=== PATIENT | female | born 1965 | race Caucasian/White ===

== ENCOUNTER 2016-12-09 23:18 | Emergency (ER) | payer OTHER ==
--- NOTE | 2016-12-10 02:50 | ED ORDER SUMMARY ---
..... Patient: GHAZALA LYNN OrderSheet [facility] VisitID: [id number] [place] [address] 51y, F Registration Date/Time: 12/09/2016 ORDER SHEET Weight: 93.8 kg (stated) Allergies: levothyroxine, Erythromycin, Fluoxetine, Lorazepam, Atorvastatin GENERAL ORDERS: Forearm Right Urgent (23:57 12/09/2016 Braydon Stewart) (Ack 0:03 Brianne ER Baker Apprentice) (0:30 GUnger) Cervical Spine 2 or 3V Urgent (23:58 12/09/2016 Braydon Stewart) (Ack 0:03 Brianne ER Baker Apprentice) (0:30 GUnger) CBC w Diff Urgent (00:52 12/10/2016 Braydon Stewart) (Ack 0:57 OSnell) (1:13 JSanders R.N.) CMP Urgent (00:52 12/10/2016 Braydon Stewart) (Ack 0:57 OSnell) (1:13 JSanders R.N.) PT with INR Urgent (00:52 12/10/2016 Braydon Stewart) (Ack 0:57 OSnell) (1:13 JSanders R.N.) PTT Urgent (00:52 12/10/2016 Braydon Stewart) (Ack 0:57 OSnell) (1:14 JSanders R.N.) MEDICATION ORDERS: Hydrocodone-APAP PO 5/325 mg (NOW, HIGH ALERT MEDICATION) (23:58 12/09/2016 Braydon Stewart) (Ack 23:59 JSanders R.N.) (0:01 JSanders R.N.) Morphine IM 5 mg (HIGH ALERT MEDICATION, NOW) (00:53 12/10/2016 Braydon Stewart) (Ack 0:58 JSanders R.N.) (1:06 JSanders R.N.) IV FLUIDS: ORDER SHEET NOTES: [Electronically signed by Mariam Castanon R.N. (03:38 12/10/2016)] [Electronically signed by Alonzo Marrufo Dr. (06:08 12/11/2016)] [Electronically locked/signed by Mariam Castanon R.N. (03:38 12/10/2016)]
--- NOTE | 2016-12-10 02:50 | ED NURSING NOTES ---
Clinical Report - Nurses [facility] [address] [place] [address] 12/09/2016 23:21 Patient: GHAZALA LYNN TRIAGE Triage time 23:30 Dec 09 2016. Acuity: LEVEL 3. Chief Complaint: RIGHT UPPER EXTREMITY PAIN. Location of symptoms- (Bruising in right arm thats painful). 23:51 12/09/16. SEPSIS SCREEN: Sepsis Screen. Negative (no infection suspected/documented). RADHA COMA SCORE: Radha Coma Scale: 15- eyes open spontaneously (4); best verbal response- oriented x 4 (5); best motor response- obeys commands (6). --23:51 Mariam Castanon R.N. 23:30 12/09/16. BP: 102/48 (large adult cuff) taken on the left arm, while sitting. HR: 66. RR: 18. O2 saturation: 95% on room air. Temp: 97.6 F (oral). Pain level now: 810. --23:51 Mariam Castanon R.N. Weight: 93.8 kg stated. Height/Length: 62 inches Per Patient. BMI: 37.9. --23:35 Mariam Castanon R.N. Medications Magnesium Oral (Capsule 500 mg) 1 capsule, at bedtime. --23:46 Mariam Castanon R.N. Multivitamins Oral. --23:46 Mariam Castanon R.N. Isosorbide Mononitrate ER Oral (Tablet Extended Release 24 Hour 30 mg) 1 tablet. --23:47 Mariam Castanon R.N. Torsemide Oral (Tablet 20 mg) 3 tablets, 2x a day. --23:47 Mariam Castanon R.N. Potassium Chloride ER Oral (Capsule Extended Release 10 meq) 1 capsule, BID. --23:48 Mariam Castanon R.N. Vitamin D3 Complete Oral. Vitamin D3 Oral (Capsule 14419 unit) 1 capsule, 1xweek. --23:48 Mariam Castanon R.N. Coreg Oral (Tablet 12.5 mg) 1 tablet, 2x a day. --23:49 Mariam Castanon R.N. Lisinopril Oral (Tablet 2.5 mg) 1 tablet, daily. --23:49 Mariam Castanon R.N. Warfarin Sodium Oral (Tablet 2 mg) 5 tablet, Tuesday and , 4 tabs the rest of the week. --23:50 Mariam Castanon R.N. Aspirin Low Dose Oral (Tablet 81 mg) 1 tablet. --23:50 Mariam Castanon R.N. Nitrofurantoin Oral. --23:51 Mariam Castanon R.N. The following entry was struck and corrected by Mariam Castanon R.N., 23:57 (12/09/16) Reason for correction - other(correction). <<STRICKEN ENTRY-- Warfarin Sodium Oral (Tablet 2 mg) 1 tablet. --23:50 Mariam Castanon R.N. --END STRIKE>>. Allergies levothyroxine.(rash) --23:45 Mariam Castanon R.N. Erythromycin.(itching, rash, SOB) --23:45 Mariam Castanon R.N. Fluoxetine.(rash) --23:45 Mariam Castanon R.N. Lorazepam. --23:46 Mariam Castanon R.N. Atorvastatin. --23:46 Mariam Castanon R.N. History Arrived by private vehicle. Historian: patient. Accompanied by family. Primary physician (Dr Rea davis). ( Patient fell a month ago). No injury occurred. It is described as radiating to the right upper extremity and shoulder. ( Patient has internal defibrillator placed 2009 due to [place], stroke and Heart failure. Patient coded 6 times during this). 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 PAST MEDICAL HX: Heart disease. SOCIAL HX: Smoker- current status unknown. No alcohol use or drug use. No infectious disease exposure. ABUSE ASSESSMENT: No report of abuse. SELF HARM ASSESSMENT: A self harm assessment was performed. The patient answered "no" to the question "Do you have thoughts of harming or killing yourself?" and "Have you recently had thoughts about harming or killing others?". --23:51 Mariam Castanon R.N. PROBLEMS: Hyperlipidemia. Anxiety Reaction. PTSD. Obesity. Automatic cardioverter defibrillator. MRSA Infection. Anoxic brain damage. Fibromyalgia. Myocardial Infarction. Congestive Heart Failure. Depression. --23:51 Mariam Castanon R.N. ADDITIONAL SURGERIES: Appendectomy. CABG x 2. . Defibrillatory placement. Oophorectomy. --23:51 Mariam Castanon R.N. Interventions ID band on patient. To treatment room. --23:51 Mariam Castanon R.N. PHYSICAL ASSESSMENT 23:51 12/09/16. Ambulatory to room. Patient gowned. GENERAL / NEURO / PSYCH: Oriented X 4. Alert. Appears in no acute distress. EXTREMITIES: Extremities exhibit normal ROM. Neuro-vascular status intact to the extremity. No upper extremity edema. Skin is non-tender on the extremities. Right shoulder. SKIN: Skin intact. Skin is warm and dry. --23:51 Mariam Castanon R.N. NURSING PROGRESS NOTES 23:52 12/09/16. The plan of care for this patient has been created. Patient gowned. Reassurance given. Two patient identifiers checked. Call light placed in reach. Side rails up x 1. Bed placed in lowest position. Brakes of bed on. Patient ready for evaluation- chart flagged and ED physician notified. --23:52 Mariam Castanon R.N. 00:00 12/10/16. BP: 118/42 (large adult cuff) taken on the left arm, while sitting. HR: 61. RR: 18. O2 saturation: 96% on room air. Pain level now: 01/20. --00:00 Mariam Castanon R.N. ( Warm blanket given for comfort). --00:01 Mariam Castanon R.N. 00:12/10/2016 Hydrocodone-APAP (Hydrocodone-Acetaminophen) PO 5/325 mg Tablets 1 tab given. Allergies verified, confirmed 5 rights and sedative warning given to the patient. --00:01 Mariam Castanon R.N. 00:12/10/16. ( Daughter at bedside). --00:01 Mariam Castanon R.N. 00:40 12/10/16. ( Patient still having pain, when came into the room., patients monitoring was off, patient was reconnected to monitors, BP and pulse). --00:40 Mariam Castanon R.N. 00:37 12/10/16. BP: 124/79 (large adult cuff) taken on the left arm, while sitting. HR: 58. RR: 18. O2 saturation: 97% on room air. Pain level now: 01/20. --00:40 Mariam Castanon R.N. 01:06 12/10/2016 Morphine (Morphine Sulfate (PF)) IM 5 mg given. Given in the left deltoid. Allergies verified, confirmed 5 rights and sedative warning given to the patient. --01:06 Mariam Castanon R.N. 01:06 12/10/16. --01:06 Mariam Castanon R.N. 01:04 12/10/16. BP: 103/88 (large adult cuff) taken on the left arm, while sitting. HR: 61. RR: 18. O2 saturation: 96% on room air. Pain level now: 01/20. --01:06 Mariam Castanon R.N. 01:33 12/10/16. BP: 101/56 (large adult cuff) taken on the left arm, while sitting. HR: 58. RR: 18. O2 saturation: 95% on room air. Pain level now: 11/20. --01:34 Mariam Castanon R.N. late entry - 03:00 12/10/16. ( Patient resting quietly, easily aroused, daughter sleeping at bedside). --03:38 Mariam Castanon R.N. DISPOSITION / DISCHARGE 03:25 12/10/16. Departure time: 03:15 Dec 10 2016. Condition at departure: improved. No learning barriers present. Discharge instructions provided and reviewed with the patient. Reviewed medication(s) side effects, precautions, dosing and course information. Prescription(s) given to the patient. Patient verbalized understanding. Written instructions provided in Albanian. The patient was discharged by the physician. She was discharged home and accompanied by family. She left the Emergency Department ambulatory and via private vehicle. Family member driving. --03:25 Mariam Castanon R.N. 03:17 12/10/16. BP: 95/49 (large adult cuff) taken on the left arm, while sitting. HR: 57. RR: 16. O2 saturation: 96% on room air. Temp: 98.6 F (oral). Pain level now: 5/10. Additional comments: Patient states her BP is usually very low. --03:25 Mariam Castanon R.N. Locked/Released at 12/10/2016 3:38 by Mariam Castanon R.N.
--- NOTE | 2016-12-10 02:50 | ED CLINICAL REPORT ---
Clinical Report - Physicians/Mid Levels [facility] [address] [place] [address] 12/09/2016 23:21 Patient: GHAZALA LYNN Time Seen: 2355; initial patient contact. Arrived- By private vehicle. Historian- patient. HISTORY OF PRESENT ILLNESS Chief Complaint: NECK PAIN. It is described as being moderate in degree and in the area of the right side of the cervical spine and radiating (Right Arm). The quality is noted to be sharp. Onset- past Several Weeks and it is still present. It was abrupt in onset and has been constant but is not gone now. No bladder dysfunction, bowel dysfunction, sensory loss or motor loss. Additional history - No Saddle Anesthesia. No Urinary Retention.No History of IV Drug Use. No Fever. Patient notes the possibility of an injury but denies injury to the head or chest. Mechanism of injury- (Aerobic Exercises in the Pool). (Local Swimming Pool). No other injury. Similar symptoms previously: Recent medical care: Not recently seen/assessed. REVIEW OF SYSTEMS No skin rash. All systems otherwise negative, except as recorded above. PAST HISTORY See nurses notes. Medications: Nitrofurantoin Oral. Aspirin Low Dose Oral (Tablet 81 mg) 1 tablet. Warfarin Sodium Oral (Tablet 2 mg) 5 tablet, Tuesday and , 4 tabs the rest of the week. Lisinopril Oral (Tablet 2.5 mg) 1 tablet, daily. Coreg Oral (Tablet 12.5 mg) 1 tablet, 2x a day. Vitamin D3 Complete Oral. Vitamin D3 Oral (Capsule 15410 unit) 1 capsule, 1xweek. Potassium Chloride ER Oral (Capsule Extended Release 10 meq) 1 capsule, BID. Torsemide Oral (Tablet 20 mg) 3 tablets, 2x a day. Isosorbide Mononitrate ER Oral (Tablet Extended Release 24 Hour 30 mg) 1 tablet. Multivitamins Oral. Magnesium Oral (Capsule 500 mg) 1 capsule, at bedtime. Allergies: Atorvastatin. Erythromycin.(itching, rash, SOB) Fluoxetine.(rash) levothyroxine.(rash) Lorazepam. SOCIAL HISTORY Never smoker. No alcohol use or drug use. No recent travel. Is a local resident. ADDITIONAL NOTES The nursing notes have been reviewed. PHYSICAL EXAM Vital Signs: 12/09/2016 23:30 BP: 102/48. HR: 66. RR: 18. O2 saturation: 95%. Temp: 97.6 F. Pain level now: 8/10. Blood pressure normal. Oxygen saturation normal. Appearance: Alert. No acute distress. (Nontoxic in Appearance. Polite. Cooperative.). HEENT: Normal external inspection. Eyes: Pupils equal, round and reactive to light. ENT: Ears normal. Pharynx normal. Neck: Normal inspection. Mild muscle spasm of the right posterior neck. (Reproducible Pain with Palpation along the RightParaspinal Muscles around the C5-C7 Vertebrae. No Midline Tenderness. No Step-Offs. No Crepitus. No Flank Skin Changes.). CVS: Normal heart rate and rhythm. Heart sounds normal. Pulses normal. Respiratory: No respiratory distress. Breath sounds normal. Chest nontender. No rales, rhonchi or wheezes. Abdomen: Normal inspection. Soft and nontender. Bowel sounds normal. Back: Normal inspection. No tenderness. Painless ROM. Skin: Skin warm and dry. Normal skin color. No rash. Abnormal skin turgor. Extremities: Extremities exhibit normal ROM. Extremities nontender. (Patient Does Have a Small Area of Ecchymosis Noted on the Right Forearm. No Masses. No Crepitus. No Bony Abnormalities. Patient Has Full Range Of Motion in All Major Joints of the Upper Extremity without Discomfort.). Neuro: Oriented X 3. Mood/affect normal. No motor deficit. No sensory deficit. (Strength in the Upper Extremities Is 5 Out Of 5 and Symmetrical to the Contralateral Side. Sensation Intact. Radial Pulses Are 2+ and Symmetrical to the Contralateral Side.). LABS, X-RAYS, AND EKG C-Spine X-rays: (PROCEDURE: XR CERVICAL SPINE 2 OR 3 VIEW INDICATION: NECK TRAUMA/INJURY TECHNIQUE: Three views. COMPARISON: None. FINDINGS: Normal alignment without mild C5-6 degenerative changes. Straightening of the cervical spine. Odontoid, lateral masses of C1 prevertebral soft tissues are normal. IMPRESSION: 1. Mild degenerative change 2. Loss of lordosis suggestive of muscular spasm.). The X-rays were independently viewed by me and interpreted by the radiologist. The X-rays were discussed with the radiologist (via pacs). Rt Forearm X-ray: (PROCEDURE: XR FOREARM - RIGHT INDICATION: BRUISING TECHNIQUE: Two views of the right forearm. COMPARISON: None. FINDINGS: Normal mineralization. No fractures. Normal osseous alignment. Negative ulnar variance. No suspicious soft-tissue calcification or radiodense foreign bodies. IMPRESSION: 1. No acute changes 2. Negative ulnar variance). The X-rays were independently viewed by me and interpreted by the radiologist. The X-rays were discussed with the radiologist (via pacs). Laboratory Tests: CBC w Diff: (ORLY: 12/10/2016 01:05) ( MsgRcvd 12/10/2016 01:21) Final results Test Result Flag Units (Reference) WHITE BLOOD COUNT 6.6 K/uL (4.5-11.5) RED BLOOD COUNT 4.28 M/uL (4.00-5.20) HEMOGLOBIN 13.0 gm/dL (12.0-16.0) HEMATOCRIT 38.9 % (36.0-46.0) MEAN CELL VOLUME 91 fL (80-100) MEAN CORPUSCULAR HGB 30 pg (26-34) MEAN CORPUSCULAR HGB CONC 34 g/dL (31-37) RED CELL DISTRIBUTION WIDTH 13.3 % (11.6-14.8) PLATELET COUNT 155 K/uL (150-400) NEUTROPHIL % 45.1 L % (50-75) LYMPH % 39.9 % (25-40) MONO % 8.5 % (3-14) EOSINOPHIL % 6.2 H % (0-4) BASOPHIL % 0.3 % (0-2) PT with INR: (ORLY: 12/10/2016 01:05) ( MsgRcvd 12/10/2016 01:27) Final results Test Result Flag Units (Reference) INR 2.4 H (0.8-1.2) Low Intensity Therapy: INR 1.5-2.0 PT range 18.5-23.1Mod.Intensity Therapy: INR 2.0-3.0 PT range 23.1-31.5High Intensity Therapy: INR 2.5-3.5 PT range 27.4-35.5High Intensity Therapy 2: INR 3.0-4.0 PT range 31.5-39.3 APTT 38 H SECONDS (24-34) CMP: (ORLY: 12/10/2016 01:05) ( MsgRcvd 12/10/2016 01:32) Final results Test Result Flag Units (Reference) GLUCOSE 101 mg/dL (70-110) BUN 18 mg/dL (7-18) CREATININE 0.9 mg/dL (0.6-1.3) Estimated GFR >60 mL/min Estimated GFR- >60 mL/min Note: Persistent reduction over 3 months in eGFR<60 mL/min/1.73 m2 defines CKD. Patients with eGFR values>=60 mL/min/1.73 m2 may also have CKD if evidence ofpersistent proteinuria. Additional information may be foundat www.kidney.org. SODIUM 145 mmol/L (136-145) POTASSIUM 3.9 mmol/L (3.5-5.1) CHLORIDE 107 mmol/L (98-107) CARBON DIOXIDE 30 mmol/L (21-32) CALCIUM 8.9 mg/dL (8.5-10.1) TOTAL PROTEIN 6.9 g/dL (6.4-8.2) ALBUMIN 3.4 g/dL (3.3-5.0) BILIRUBIN, TOTAL 0.3 mg/dL (0.0-1.0) ALKALINE PHOSPHATASE 76 U/L (46-116) AST (SGOT) 23 U/L (15-37) ALT (SGPT) 32 U/L (12-78) . PROGRESS AND PROCEDURES Course of Care: The Patient Is a 51-year-old Female Presenting for a Vaginal Right-Sided Neck Pain and Arm Pain. I This Time, Patient Likely with Radiculopathy from the Cervical Vertebrae. Patient Is Agreeable to the Treatment Plan. We'll Order Radiographs for Any Acute Osseous Abnormalities. Patient Also Is on Warfarin Therapy and Will Order Laboratory Studies for Any Coagulopathy from the Warfarin Therapy. Patient Also with Bruising to the Right Forearm. Patient Will Be Hydrated for Any Underlying Osseous Abnormalities from Possible Trauma. Patient Does Not Recall Direct Trauma However States That It Is Possible. No Neurovascular Compromise at This Time. Patient Appears Nontoxic. No Concern for Meningitis or Other More Sinister Etiologies for the Patient's Symptoms. Do Not Fill Symptoms at This Time Are Due To Paraspinal Infection or Paraspinal Abscess. The Patient's Workup Was Unremarkable for the Findings above. Patient's Laboratory Studies Indicate the Patient Is in Therapeutic Range for Her Cifuentes Requiring Intervention at This Time. Pain Was Controlled Here in the Emergency Department Albeit with Some Difficulty. I Discussion with the Patient in Regards to Her Presentation Here in the Emergency Department. Patient States That Her Sister Is an Copy Messenger. Had Discussion Patient in Regards to Nontraditional Treatments for Back Pain and Encouraged Patient to Floor Different Options. Patient Continues Have No Signs of Neurovascular Compromise. No Signs of Cauda Equina or Conus Medullaris. Patient Is a Nontoxic and Is in No Acute Distress. Pain Is Significantly Improved While Here in the Emergency Department. Patient Is a Stable Outpatient Candidate. Discussed with Patient Her Workup Here in the Emergency Department Including Diagnosis, Home Care, Follow-Up, and Return Precautions. All Questions Have Been Answered. The Patient Expressed Understanding of These Instructions and Was Agreeable to Them. CLINICAL IMPRESSION 12/10/2016 01:33 BP: 101/56. HR: 58. RR: 18. O2 saturation: 95%. Pain level now: 6/10. Blood pressure normal. Oxygen saturation normal. Acute right lower cervical radiculopathy. Acute cervical strain (acute right sided). INSTRUCTIONS Warnings: GENERAL WARNINGS: Return or contact your physician immediately if your condition worsens or changes unexpectedly, if not improving as expected, or if other problems arise. SPECIFICALLY, return if you develop weakness, numbness, tingling, pain or incontinence. Your Current Medications: CONTINUE TAKING THE FOLLOWING MEDICATIONS: Aspirin Low Dose Oral : Tablet 81 mg, 1 tablet. Coreg Oral : Tablet 12.5 mg, 1 tablet 2x a day. Isosorbide Mononitrate ER Oral : Tablet Extended Release 24 Hour 30 mg, 1 tablet. Lisinopril Oral : Tablet 2.5 mg, 1 tablet daily. Magnesium Oral : Capsule 500 mg, 1 capsule at bedtime. Multivitamins Oral. Nitrofurantoin Oral. Potassium Chloride ER Oral : Capsule Extended Release 10 meq, 1 capsule BID. Torsemide Oral : Tablet 20 mg, 3 tablets 2x a day. Vitamin D3 Complete Oral. Vitamin D3 Oral : Capsule 26622 unit, 1 capsule 1xweek. Warfarin Sodium Oral : Tablet 2 mg, 5 tablet Tuesday and , 4 tabs the rest of the week. Prescription Medications: Percocet 5 mg/325 mg: take 1-2 tablets orally every 6 hours as needed for pain. Dispense fifteen (15). No refill. Substitution is permissible. Follow-up: Return to the emergency department as needed. Follow up with your doctor in three days. Reason for referral: recheck today's concerns. Summary of care provided to patient via paper. Screening today revealed the patient's blood pressure to be in the normal range. The patient should follow up with a primary care provider for blood pressure management. Understanding of the discharge instructions verbalized by patient. (Electronically signed by Alonzo Marrufo Dr. 12/11/2016 6:08)
--- NOTE | 2016-12-10 02:50 | ED ORDER SUMMARY ---
..... Patient: GHAZALA LYNN OrderSheet [facility] VisitID: [id number] [place] [address] 51y, F Registration Date/Time: 12/09/2016 ORDER SHEET Weight: 93.8 kg (stated) Allergies: levothyroxine, Erythromycin, Fluoxetine, Lorazepam, Atorvastatin GENERAL ORDERS: Forearm Right Urgent (23:57 12/09/2016 Braydon Stewart) (Ack 0:03 Brianne ER Software Tester) (0:30 GUnger) Cervical Spine 2 or 3V Urgent (23:58 12/09/2016 Braydon Stewart) (Ack 0:03 Brianne ER Software Tester) (0:30 GUnger) CBC w Diff Urgent (00:52 12/10/2016 Braydon Stewart) (Ack 0:57 OSnell) (1:13 JSanders R.N.) CMP Urgent (00:52 12/10/2016 Braydon Stewart) (Ack 0:57 OSnell) (1:13 JSanders R.N.) PT with INR Urgent (00:52 12/10/2016 Braydon Stewart) (Ack 0:57 OSnell) (1:13 JSanders R.N.) PTT Urgent (00:52 12/10/2016 Braydon Stewart) (Ack 0:57 OSnell) (1:14 JSanders R.N.) MEDICATION ORDERS: Hydrocodone-APAP PO 5/325 mg (NOW, HIGH ALERT MEDICATION) (23:58 12/09/2016 Braydon Stewart) (Ack 23:59 JSanders R.N.) (0:01 JSanders R.N.) Morphine IM 5 mg (HIGH ALERT MEDICATION, NOW) (00:53 12/10/2016 Braydon Stewart) (Ack 0:58 JSanders R.N.) (1:06 JSanders R.N.) IV FLUIDS: ORDER SHEET NOTES: [Electronically signed by Mariam Castanon R.N. (03:38 12/10/2016)] [Electronically signed by Alonzo Marrufo Dr. (06:08 12/11/2016)] [Electronically locked/signed by Mariam Castanon R.N. (03:38 12/10/2016)]
--- NOTE | 2016-12-10 05:47 | DIAGNOSTIC IMAGING REPORT ---
PROCEDURE: XR FOREARM - RIGHT INDICATION: BRUISING TECHNIQUE: Two views of the right forearm. COMPARISON: None. FINDINGS: Normal mineralization. No fractures. Normal osseous alignment. Negative ulnar variance. No suspicious soft-tissue calcification or radiodense foreign bodies. IMPRESSION: 1. No acute changes 2. Negative ulnar variance
--- NOTE | 2016-12-10 05:50 | DIAGNOSTIC IMAGING REPORT ---
PROCEDURE: XR CERVICAL SPINE 2 OR 3 VIEW INDICATION: NECK TRAUMA/INJURY TECHNIQUE: Three views. COMPARISON: None. FINDINGS: Normal alignment without mild C5-6 degenerative changes. Straightening of the cervical spine. Odontoid, lateral masses of C1 prevertebral soft tissues are normal. IMPRESSION: 1. Mild degenerative change 2. Loss of lordosis suggestive of muscular spasm.
--- NOTE | 2016-12-11 06:08 | ED DISCHARGE INSTRUCTIONS ---
Patient: GHAZALA LYNN General Instructions [facility] VisitID: [id number] [place] [address] 51y, F Registration Date/Time: 12/09/2016 12/10/2016 01:33 BP: 101/56. HR: 58. RR: 18. O2 saturation: 95%. Pain level now: 6/10. Blood pressure normal. Oxygen saturation normal. Acute right lower cervical radiculopathy. Acute cervical strain (acute right sided). INSTRUCTIONS Warnings: GENERAL WARNINGS: Return or contact your physician immediately if your condition worsens or changes unexpectedly, if not improving as expected, or if other problems arise. SPECIFICALLY, return if you develop weakness, numbness, tingling, pain or incontinence. Your Current Medications: CONTINUE TAKING THE FOLLOWING MEDICATIONS: Aspirin Low Dose Oral : Tablet 81 mg, 1 tablet. Coreg Oral : Tablet 12.5 mg, 1 tablet 2x a day. Isosorbide Mononitrate ER Oral : Tablet Extended Release 24 Hour 30 mg, 1 tablet. Lisinopril Oral : Tablet 2.5 mg, 1 tablet daily. Magnesium Oral : Capsule 500 mg, 1 capsule at bedtime. Multivitamins Oral. Nitrofurantoin Oral. Potassium Chloride ER Oral : Capsule Extended Release 10 meq, 1 capsule BID. Torsemide Oral : Tablet 20 mg, 3 tablets 2x a day. Vitamin D3 Complete Oral. Vitamin D3 Oral : Capsule 81442 unit, 1 capsule 1xweek. Warfarin Sodium Oral : Tablet 2 mg, 5 tablet Tuesday and , 4 tabs the rest of the week. Prescription Medications: Percocet 5 mg/325 mg: take 1-2 tablets orally every 6 hours as needed for pain. Dispense fifteen (15). No refill. Substitution is permissible. Follow-up: Return to the emergency department as needed. Follow up with your doctor in three days. Reason for referral: recheck today's concerns. Summary of care provided to patient via paper. Screening today revealed the patient's blood pressure to be in the normal range. The patient should follow up with a primary care provider for blood pressure management. Understanding of the discharge instructions verbalized by patient. ADDITIONAL INFORMATION Neck Sprain Or Strain A sudden force that causes turning or bending of the neck (such as in a car accident) can stretch or tear muscles (strain) and ligaments (sprain) and cause neck pain. Sometimes neck pain occurs after a simple awkward movement. In either case, muscle spasm is commonly present and contributes to the pain. Unless you had a forceful physical injury (for example, a car accident or fall), X-rays are usually not ordered for the initial evaluation of neck pain. If pain continues and dose not respond to medical treatment, X-rays and other tests may be performed at a later time. Home care The following guidelines will help you care for your injury at home: You may feel more soreness and spasm the first few days after the injury. Reduce your activity level until symptoms begin to improve. When lying down, use a comfortable pillow that supports the head and keeps the spine in a neutral position. The position of the head should not be tilted forward or backward. Use ice packs (ice in a plastic bag, wrapped in a towel) to treat acute pain. Apply for 20 minutes every 24 hours during the first two days. Then, begin local heat (hot shower, hot bath or heating pad) andmassageto reduce muscle spasm. Some patients feel best alternating hot and cold treatments, or just staying with one method only. Do what feels the best to you and gives the most relief. You may use acetaminophen or ibuprofen to control pain, unless another pain medicine was prescribed.If you have chronic liver or kidney disease or ever had a stomach ulcer or GI bleeding, talk with your doctor before using these medicines. Follow-up care Follow up with your physician or this facility if your symptoms do not show signs of improvement. Physical therapy may be needed. If you had X-rays today, they didnt show any broken bones, breaks, or fractures. Sometimes fractures dont show up on the first X-ray. Bruises and sprains can sometimes hurt as much as a fracture. These injuries can take time to heal completely. If your symptoms dont improve or they get worse, talk with your doctor. You may need a repeat X-ray. When to seek medical care Get prompt medical attention if any of the following occur: Pain becomes worse or spreads into your arms Weakness or numbness in one or both arms Pinched Nerve, Neck [Cervical Radiculopathy] A pinched nerve in the neck (also called "Cervical Radiculopathy") is caused by irritation or pressure on the nerve that goes from the spinal cord to the arm. This may be caused by a bulging spinal disk (a "spinal disk" is the cushion between each spinal bone) or narrowing of the spinal joint due to arthritis. This can cause numbness, tingling, deep aching or electrical shooting pain from the side of the neck all the way down to the fingers on one side. A pinched nerve may begin after a sudden turning/bending force (such as in a car accident) or after a simple awkward movement. In either case, muscle spasm is commonly present and contributes to the pain. Home Care: 1) Rest and relax the muscles. Use a comfortable pillow that supports the head and keeps the spine in a neutral position. The position of the head should not be tilted forward or backward. A rolled up towel may help for a custom fit. 2) Some persons find relief with heat (hot shower, hot bath or heating pad) and massage, while others prefer cold packs (crushed or cubed ice in a plastic bag, wrapped in a towel) . Try both and use the method that feels best for 20 minutes several times a day. 3) You may use acetaminophen (Tylenol) or ibuprofen (Motrin, Advil) to control pain, unless another medicine was prescribed. [ NOTE : If you have chronic liver or kidney disease or ever had a stomach ulcer or GI bleeding, talk with your doctor before using these medicines.] Follow Up with your physician or this facility if your symptoms do not show signs of improvement after one week. Further testing may be needed. [NOTE: If x-rays were taken, they will be reviewed by a radiologist. You will be notified of any new findings that may affect your care.] Get Prompt Medical Attention if any of the following occur: -- Pain becomes worse and not controlled by prescribed pain medicine -- Weakness in the arm -- Increasing numbness in the arm -- Trouble breathing or swallowing Oxycodone Hydrochloride, Acetaminophen Oral tablet What is this medicine? ACETAMINOPHEN; OXYCODONE (a set a RAMBO sheila fen; ox i KOE done) is a pain reliever. It is used to treat mild to moderate pain. How should I use this medicine? Take this medicine by mouth with a full glass of water. Follow the directions on the prescription label. Take your medicine at regular intervals. Do not take your medicine more often than directed. Talk to your profile grinder technician regarding the use of this medicine in children. Special care may be needed. Patients over 65 years old may have a stronger reaction and need a smaller dose. What side effects may I notice from receiving this medicine? Side effects that you should report to your doctor or health childcare provider as soon as possible: allergic reactions like skin rash, itching or hives, swelling of the face, lips, or tongue breathing difficulties, wheezing confusion light headedness or fainting spells severe stomach pain yellowing of the skin or the whites of the eyes Side effects that usually do not require medical attention (report to your doctor or health childcare provider if they continue or are bothersome): dizziness drowsiness nausea vomiting What may interact with this medicine? alcohol antihistamines barbiturates like amobarbital, butalbital, butabarbital, methohexital, pentobarbital, phenobarbital, thiopental, and secobarbital benztropine drugs for bladder problems like solifenacin, trospium, oxybutynin, tolterodine, hyoscyamine, and methscopolamine drugs for breathing problems like ipratropium and tiotropium drugs for certain stomach or intestine problems like propantheline, homatropine methylbromide, glycopyrrolate, atropine, belladonna, and dicyclomine general anesthetics like etomidate, ketamine, nitrous oxide, propofol, desflurane, enflurane, halothane, isoflurane, and sevoflurane medicines for depression, anxiety, or psychotic disturbances medicines for sleep muscle relaxants naltrexone narcotic medicines (opiates) for pain phenothiazines like perphenazine, thioridazine, chlorpromazine, mesoridazine, fluphenazine, prochlorperazine, promazine, and trifluoperazine scopolamine tramadol trihexyphenidyl What if I miss a dose? If you miss a dose, take it as soon as you can. If it is almost time for your next dose, take only that dose. Do not take double or extra doses. Where should I keep my medicine? Keep out of the reach of children. This medicine can be abused. Keep your medicine in a safe place to protect it from theft. Do not share this medicine with anyone. Selling or giving away this medicine is dangerous and against the law. Store at room temperature between 20 and 25 degrees C (68 and 77 degrees F). Keep container tightly closed. Protect from light. This medicine may cause accidental overdose and if it is taken by other adults, children, or pets. Flush any unused medicine down the toilet to reduce the chance of harm. Do not use the medicine after the expiration date. What should I tell my health care provider before I take this medicine? They need to know if you have any of these conditions: brain tumor Crohn's disease, inflammatory bowel disease, or ulcerative colitis drink more than 3 alcohol containing drinks per day drug abuse or addiction head injury heart or circulation problems kidney disease or problems going to the bathroom liver disease lung disease, asthma, or breathing problems an unusual or allergic reaction to acetaminophen, oxycodone, other opioid analgesics, other medicines, foods, dyes, or preservatives or trying to get breast-feeding What should I watch for while using this medicine? Tell your doctor or health childcare provider if your pain does not go away, if it gets worse, or if you have new or a different type of pain. You may develop tolerance to the medicine. Tolerance means that you will need a higher dose of the medication for pain relief. Tolerance is normal and is expected if you take this medicine for a long time. Do not suddenly stop taking your medicine because you may develop a severe reaction. Your body becomes used to the medicine. This does NOT mean you are addicted. Addiction is a behavior related to getting and using a drug for a non-medical reason. If you have pain, you have a medical reason to take pain medicine. Your doctor will tell you how much medicine to take. If your doctor wants you to stop the medicine, the dose will be slowly lowered over time to avoid any side effects. You may get drowsy or dizzy. Do not drive, use machinery, or do anything that needs mental alertness until you know how this medicine affects you. Do not stand or sit up quickly, especially if you are an older patient. This reduces the risk of dizzy or fainting spells. Alcohol may interfere with the effect of this medicine. Avoid alcoholic drinks. There are different types of narcotic medicines (opiates) for pain. If you take more than one type at the same time, you may have more side effects. Give your health care provider a list of all medicines you use. Your doctor will tell you how much medicine to take. Do not take more medicine than directed. Call emergency for help if you have problems breathing. The medicine will cause constipation. Try to have a bowel movement at least every 2 to 3 days. If you do not have a bowel movement for 3 days, call your doctor or health childcare provider. Do not take Tylenol (acetaminophen) or medicines that have acetaminophen with this medicine. Too much acetaminophen can be very dangerous. Many nonprescription medicines contain acetaminophen. Always read the labels carefully to avoid taking more acetaminophen. You have been given the following additional information: Neck Sprain/Strain Radiculopathy, Cervical Oxycodone Hydrochloride, Acetaminophen Oral tablet (Electronically signed by Alonzo Marrufo Dr. 12/11/2016 6:08)
--- NOTE | 2016-12-11 06:08 | ED MAR SUMMARY ---
..... Medication Administration Record [facility] [address] [place] [address] Patient: GHAZALA LYNN Visit ID: [id number] 51y, F Weight: 93.8 kg Height/Length: 62 in BMI: 37.9 ALLERGIES: Atorvastatin, Lorazepam, Fluoxetine, Erythromycin, levothyroxine Given 00:01 12/10/2016 Mariam Castanon R.N. Medication Administered: HYDROCODONE-APAP [PO] (HYDROCODONE-ACETAMINOPHEN), Dose: 1 tab 5/325 mg Tablets PO. Medication Ordered: Hydrocodone-APAP PO 5/325 mg (NOW, HIGH ALERT MEDICATION). Given 01:06 12/10/2016 Mariam Castanon R.N. Medication Administered: MORPHINE [IM] (MORPHINE SULFATE (PF)), Dose: 5 mg IM. Medication Ordered: Morphine IM 5 mg (HIGH ALERT MEDICATION, NOW).
--- NOTE | 2016-12-11 06:08 | ED MAR SUMMARY ---
..... Medication Administration Record [facility] [address] [place] [address] Patient: GHAZALA LYNN Visit ID: [id number] 51y, F Weight: 93.8 kg Height/Length: 62 in BMI: 37.9 ALLERGIES: Atorvastatin, Lorazepam, Fluoxetine, Erythromycin, levothyroxine Given 00:01 12/10/2016 Mariam Castanon R.N. Medication Administered: HYDROCODONE-APAP [PO] (HYDROCODONE-ACETAMINOPHEN), Dose: 1 tab 5/325 mg Tablets PO. Medication Ordered: Hydrocodone-APAP PO 5/325 mg (NOW, HIGH ALERT MEDICATION). Given 01:06 12/10/2016 Mariam Castanon R.N. Medication Administered: MORPHINE [IM] (MORPHINE SULFATE (PF)), Dose: 5 mg IM. Medication Ordered: Morphine IM 5 mg (HIGH ALERT MEDICATION, NOW).
--- NOTE | 2016-12-11 06:08 | ED MED RECONCILIATION SUMMARY ---
Patient: GHAZALA LYNN Medication Reconciliation Report [facility] VisitID: [id number] [place] [address] 51y, F Registration Date/Time: 12/09/2016 Weight: 93.8 kg Height/Length: 62 in. BMI: 37.9 ALLERGIES: Atorvastatin, Erythromycin, Fluoxetine, levothyroxine, Lorazepam The patient's Home Medications are listed below: CONTINUE TAKING THE FOLLOWING MEDICATIONS: Aspirin Low Dose Oral (81 mg) 1 tablet Coreg Oral (12.5 mg) 1 tablet, 2x a day Isosorbide Mononitrate ER Oral (30 mg) 1 tablet Lisinopril Oral (2.5 mg) 1 tablet, daily Magnesium Oral (500 mg) 1 capsule, at bedtime Multivitamins Oral Nitrofurantoin Oral Potassium Chloride ER Oral (10 meq) 1 capsule, BID Torsemide Oral (20 mg) 3 tablets, 2x a day Vitamin D3 Complete Oral Vitamin D3 Oral (06985 unit) 1 capsule, 1xweek Warfarin Sodium Oral (2 mg) 5 tablet, Tuesday and , 4 tabs the rest of the week The source(s) of the original Home Medication information: Not obtained. The following Medications were given to the patient in the Emergency Department: Hydrocodone-APAP [PO] PO 1 tab, administered: 12/10/2016 12:01:00 AM Morphine [IM] IM 5 mg, administered: 12/10/2016 1:06:00 AM The following Medications were prescribed to the patient: Percocet 5 mg/325 mg: take 1-2 tablets orally every 6 hours as needed for pain. Dispense fifteen (15). No refill. Substitution is permissible. -- Alonzo Marrufo Dr.
--- NOTE | 2016-12-11 06:08 | ED MED RECONCILIATION SUMMARY ---
Patient: GHAZALA LYNN Medication Reconciliation Report [facility] VisitID: [id number] [place] [address] 51y, F Registration Date/Time: 12/09/2016 Weight: 93.8 kg Height/Length: 62 in. BMI: 37.9 ALLERGIES: Atorvastatin, Erythromycin, Fluoxetine, levothyroxine, Lorazepam The patient's Home Medications are listed below: CONTINUE TAKING THE FOLLOWING MEDICATIONS: Aspirin Low Dose Oral (81 mg) 1 tablet Coreg Oral (12.5 mg) 1 tablet, 2x a day Isosorbide Mononitrate ER Oral (30 mg) 1 tablet Lisinopril Oral (2.5 mg) 1 tablet, daily Magnesium Oral (500 mg) 1 capsule, at bedtime Multivitamins Oral Nitrofurantoin Oral Potassium Chloride ER Oral (10 meq) 1 capsule, BID Torsemide Oral (20 mg) 3 tablets, 2x a day Vitamin D3 Complete Oral Vitamin D3 Oral (41939 unit) 1 capsule, 1xweek Warfarin Sodium Oral (2 mg) 5 tablet, Tuesday and , 4 tabs the rest of the week The source(s) of the original Home Medication information: Not obtained. The following Medications were given to the patient in the Emergency Department: Hydrocodone-APAP [PO] PO 1 tab, administered: 12/10/2016 12:01:00 AM Morphine [IM] IM 5 mg, administered: 12/10/2016 1:06:00 AM The following Medications were prescribed to the patient: Percocet 5 mg/325 mg: take 1-2 tablets orally every 6 hours as needed for pain. Dispense fifteen (15). No refill. Substitution is permissible. -- Alonzo Marrufo Dr.
== END 2016-12-10 03:15 | disposition home or self-care (01) ==
LOC: ED SRH 23:18
DX: S16.1XXA Strain of muscle, fascia and tendon at neck level, initial encounter (principal); X58.XXXA Exposure to other specified factors, initial encounter; Y93.9 Activity, unspecified; Y92.9 Unspecified place or not applicable; Y99.9 Unspecified external cause status; M54.12 Radiculopathy, cervical region; E78.5 Hyperlipidemia, unspecified; I25.2 Old myocardial infarction; I50.9 Heart failure, unspecified; Z79.82 Long term (current) use of aspirin